=== PATIENT | female | born 1985 | race American Indian/Alaskan Native ===

== ENCOUNTER 2017-07-23 09:09 | Emergency (ER) | payer BC, OTHER ==
[2017-07-23 09:25] VITALS: BP 113/82; PULSE 93; RESP 18; TEMP 98.1; O2SAT 97; BMI 31.1
[2017-07-23] MEDS ORDERED: Tdap Vaccine 0.5 ml Vial (10-64 yrs) IM ONE ×2 (09:42→09:48)
--- NOTE | 2017-07-23 09:45 | C.PDOC ---
History Of Present Illness 32yo female, presents to ER for evaluation of bilateral armpit irritation since last night. She used Orozco hair removal cream last night, resulting in the burn; patient states she applied vaseline and crook butter to the area. She currently reports ongoing pain but denies any fever or chills. She has no other medical complaints. TDAP not up to date. PMD: Erwin Marc Time Seen by Provider: 07/23/17 09:25 Chief Complaint (Nursing): Abnormal Skin Integrity History Per: Patient History/Exam Limitations: no limitations Onset/Duration Of Symptoms: Days Current Symptoms Are (Timing): Still Present Quality Of Symptoms: Painful Additional History Per: Patient Past Medical History Reviewed: Historical Data, Nursing Documentation, Vital Signs Vital Signs: Last Vital Signs Temp 98.1 F 07/23/17 09:15 Pulse 93 H 07/23/17 09:15 Resp 18 07/23/17 09:15 BP 113/82 07/23/17 09:15 Pulse Ox 97 07/23/17 10:24 - Medical History PMH: No Chronic Diseases Surgical History: No Surg Hx - [facility] Procedures ARTIF RUPT MEMBRANES NEC (12/08/13) MANUAL ASSIST DELIV NEC (12/08/13) REPAIR OB LACERATION NEC (12/08/13) Family History: States: No Known Family Hx - Social History Hx Tobacco Use: No Hx Alcohol Use: No Hx Substance Use: No - Immunization History Hx Tetanus Toxoid Vaccination: No Hx Influenza Vaccination: No Hx Pneumococcal Vaccination: No Review Of Systems Constitutional: Negative for: Fever, Chills Skin: Positive for: Other (bilateral armpit irritation/pain) Physical Exam - Physical Exam Appears: Non-toxic, No Acute Distress Skin: Warm, Dry, Other (1st degree yost to bilateral armpits, left > right) Chest: Symmetrical Cardiovascular: Rhythm Regular Respiratory: Normal Breath Sounds Neurological/Psych: Oriented x3 ED Course And Treatment O2 Sat by Pulse Oximetry: 97 (RA) Pulse Ox Interpretation: Normal Medical Decision Making Medical Decision Making: Impression: Skin irritation Plan: -- Motrin 600mg PO -- TDAP booster Patient instructed to apply bacitracin to the areas and to follow up with PMD in 2-3 days. Patient informed to take Kefflex if area has increased swelling, or redness. Stable for discharge home. Disposition Counseled Patient/Family Regarding: Diagnosis, Need For Followup, Rx Given - Disposition Referrals: Erwin Marc MD [Medical Doctor] - Disposition: HOME/ ROUTINE Disposition Time: 09:44 Condition: STABLE Additional Instructions: follow up with your doctor in 2 days call to make an appointment take medications as prescribed return to ER if symptoms worsens or progress start cephalexin if arm becomes red, swollen or more painful - infected Prescriptions: Bacitracin Ointment [Bacitracin] 1 appl TOP BID #30 tube Cephalexin [Keflex] 500 mg PO QID #40 capsule Naproxen [Naprosyn] 500 mg PO BID PRN #16 tab PRN Reason: Pain, Moderate (4-7) Instructions: Skin Yost Forms: [facility] (Sen[place]e), General Discharge Instructions - Clinical Impression Clinical Impression: Burn - Scribe Statement The provider has reviewed the documentation as recorded by the Scribe (Alicia Novoa) Provider Attestation: All medical record entries made by the Scribe were at my direction and personally dictated by me. I have reviewed the chart and agree that the record accurately reflects my personal performance of the history, physical exam, medical decision making, and the department course for this patient. I have also personally directed, reviewed, and agree with the discharge instructions and disposition.
== END 2017-07-23 09:55 | disposition home or self-care (01) ==
LOC: C.ER 09:09
DX: T22.142A Burn of first degree of left axilla, initial encounter (principal); T22.141A Burn of first degree of right axilla, initial encounter; X08.8XXA Exposure to other specified smoke, fire and flames, initial encounter; Z23 Encounter for immunization